=== PATIENT | female | born 1945 | race Hispanic/Latino ===

== ENCOUNTER 2018-03-21 19:24 | Observation (INO) | payer OTHER, BC ==
[2018-03-21 20:23] LABS: Absolute Lymphocytes (CBC) 1.5 K/uL (0.7-4.9); Absolute Monocytes 0.7 K/uL (0.1-1.3); Absolute Neutrophil 4.7 K/uL (1.8-8.0); Basophils % 0.9 % (0-1.3); Hematocrit 22.3 % (36.0-45.0); Lymphocytes % 20.7 % (15.3-44.8); MCH 30.1 pg (27.0-35.0); MCV 87.4 fL (80-100); MPV 7.5 fL (7.6-11.3); Monocytes % 9.5 % (3.3-12.3); RBC Red Blood Cell Count 2.55 M/uL (3.86-4.86)
[2018-03-21 20:26] LABS: Protime INR 0.97
[2018-03-21 20:37] LABS: ALT/SGPT 17 U/L (12-78); AST/SGOT 15 U/L (15-37); Albumin 2.6 g/dL (3.4-5.0); Alkaline Phosphatase 99 U/L (45-117); BUN Blood Urea Nitrogen 12 mg/dL (7-18); Bicarbonate 31 mmol/L (21-32); Bilirubin Direct < 0.1 mg/dL (0-0.2); Bilirubin Total 0.2 mg/dL (0.2-1.0); CKMB Creatine Kinase MB < 1.0 ng/mL (0.3-3.6); Creatine Phosphokinase 20 U/L (26-192); Glucose Level 101 mg/dL (74-106); Magnesium 1.8 mg/dL (1.8-2.4); NT PRO-BNP 3336 pg/mL (<125); Potassium 3.2 mmol/L (3.5-5.1); Protein, Total 6.4 g/dL (6.4-8.2); Sodium Level 139 mmol/L (136-145)
--- NOTE | 2018-03-21 20:49 | RAD REPORT ---
EXAM DESCRIPTION: RAD - Chest Single View - 03/21/2018 8:39 pm CLINICAL HISTORY: blood transfusion Chest pain. COMPARISON: No comparisons FINDINGS: Portable technique limits examination quality. The lungs are grossly clear. The heart is mildly prominent in size. No displaced fractures.Right-side d dialysis catheter tip in the SVC. IMPRESSION: No acute intrathoracic process suspected.
--- NOTE | 2018-03-21 21:06 | EDPHYS ---
Physician Documentation [facility] Name: Stephanie Angeles Age: 72 yrs Sex: Female : 1945 Arrival Date: 03/21/2018 Time: 19:29 Bed 2 Private MD: ED Physician Ti De Guzman HPI: 03/21 21:01 This 72 yrs old Female presents to ER via Wheelchair with complaints of BLOOD estela TRANSFUSION. 21:01 weakness, sob, esrd on hd. Onset: The symptoms/episode began/occurred 1 week(s) ago. estela Severity of symptoms: At their worst the symptoms were mild moderate in the emergency department the symptoms are unchanged. The patient has experienced similar episodes in the past, several times. Historical: - Allergies: 20:02 No Known Allergies; bb - Home Meds: 20:02 furosemide 20 mg Oral tab 1 tab once daily [Active]; glipizide 2.5 mg Oral tr24 1 tabs bb once daily [Active]; isosorbide mononitrate 30 mg Oral Tb24 1 tab once daily [Active]; potassium chloride 10 mEq Oral cpER 1 cap once daily [Active]; lisinopril 40 mg Oral tab 1 tab once daily [Active]; metoprolol tartrate 100 mg Oral tab 1 tab 2 times per day [Active]; simvastatin 40 mg Oral tab 1 tab once daily [Active]; - PMHx: 20:02 Hypertension; Hyperlipidemia; Diabetes - NIDDM; bb 20:03 ESRD; bb - PSHx: 20:02 Hysterectomy; bb - Immunization history:: Adult Immunizations unknown. - Social history:: Smoking status: Patient/guardian denies using tobacco, Patient/guardian denies using alcohol, street drugs. - Ebola Screening: : No symptoms or risks identified at this time. ROS: 21:01 Constitutional: Negative for fever, chills, and weight loss, Eyes: Negative for injury, estela pain, redness, and discharge, ENT: Negative for injury, pain, and discharge, Neck: Negative for injury, pain, and swelling, Cardiovascular: Negative for chest pain, palpitations, and edema, Respiratory: Negative for shortness of breath, cough, wheezing, and pleuritic chest pain, Abdomen/GI: Negative for abdominal pain, nausea, vomiting, diarrhea, and constipation, Back: Negative for injury and pain, : Negative for injury, bleeding, discharge, and swelling, MS/Extremity: Negative for injury and deformity, Skin: Negative for injury, rash, and discoloration, Psych: Negative for depression, anxiety, suicide ideation, homicidal ideation, and hallucinations, Allergy/Immunology: Negative for hives, rash, and allergies, Endocrine: Negative for neck swelling, polydipsia, polyuria, polyphagia, and marked weight changes, Hematologic/Lymphatic: Negative for swollen nodes, abnormal bleeding, and unusual bruising. 21:01 Neuro: Positive for weakness. Exam: 21:01 Constitutional: This is a well developed, well nourished patient who is awake, alert, estela and in no acute distress. Head/Face: Normocephalic, atraumatic. Eyes: Pupils equal round and reactive to light, extra-ocular motions intact. Lids and lashes normal. Conjunctiva and sclera are non-icteric and not injected. Cornea within normal limits. Periorbital areas with no swelling, redness, or edema. ENT: Nares patent. No nasal discharge, no septal abnormalities noted. Tympanic membranes are normal and external auditory canals are clear. Oropharynx with no redness, swelling, or masses, exudates, or evidence of obstruction, uvula midline. Mucous membranes moist. Neck: Trachea midline, no thyromegaly or masses palpated, and no cervical lymphadenopathy. Supple, full range of motion without nuchal rigidity, or vertebral point tenderness. No Meningismus. Chest/axilla: Normal chest wall appearance and motion. Nontender with no deformity. No lesions are appreciated. Cardiovascular: Regular rate and rhythm with a normal S1 and S2. No gallops, murmurs, or rubs. Normal PMI, no JVD. No pulse deficits. Respiratory: Lungs have equal breath sounds bilaterally, clear to auscultation and percussion. No rales, rhonchi or wheezes noted. No increased work of breathing, no retractions or nasal flaring. Abdomen/GI: Soft, non-tender, with normal bowel sounds. No distension or tympany. No guarding or rebound. No evidence of tenderness throughout. Back: No spinal tenderness. No costovertebral tenderness. Full range of motion. Skin: Warm, dry with normal turgor. Normal color with no rashes, no lesions, and no evidence of cellulitis. MS/ Extremity: Pulses equal, no cyanosis. Neurovascular intact. Full, normal range of motion. Neuro: Awake and alert, GCS 15, oriented to person, place, time, and situation. Cranial nerves II-XII grossly intact. Motor strength 5/5 in all extremities. Sensory grossly intact. Cerebellar exam normal. Normal gait. Psych: Awake, alert, with orientation to person, place and time. Behavior, mood, and affect are within normal limits. Vital Signs: 20:03 BP 134 / 90; Pulse 78; Resp 16 S; Pulse Ox 98% on R/A; Weight 65.77 kg (R); Height 5 bb ft. 1 in. (154.94 cm) (R); 20:12 BP 149 / 64; Pulse 75; Resp 16; Pulse Ox 96% on R/A; mt 21:45 BP 129 / 59; Pulse 74; Resp 18; Pulse Ox 98% on R/A; mt 22:03 BP 123 / 58; Pulse 70; Resp 19; Pulse Ox 98% on R/A; mt 23:01 BP 126 / 61; Pulse 76; Resp 16; Pulse Ox 98% ; Pain 0/10; ao 20:03 Body Mass Index 27.40 (65.77 kg, 154.94 cm) bb MDM: 20:27 Patient medically screened. [facility] 21:04 Data reviewed: vital signs, nurses notes, lab test result(s), EKG, radiologic studies, estela plain films. 03/21 19:56 Order name: Basic Metabolic Panel; Complete Time: 20:59 03/21 19:56 Order name: CBC with Diff; Complete Time: 20:59 03/21 19:56 Order name: Ckmb; Complete Time: 20:59 03/21 19:56 Order name: CPK; Complete Time: 20:59 03/21 19:56 Order name: LFT's; Complete Time: 20:59 03/21 19:56 Order name: Magnesium; Complete Time: 20:59 03/21 19:56 Order name: NT PRO-BNP; Complete Time: 20:59 03/21 19:56 Order name: PT-INR; Complete Time: 20:59 03/21 19:56 Order name: Ptt, Activated; Complete Time: 20:59 03/21 19:56 Order name: Troponin (emerg Dept Use Only); Complete Time: 20:59 03/21 19:56 Order name: XRAY Chest (1 view); Complete Time: 20:59 03/21 19:56 Order name: EKG; Complete Time: 19:56 03/21 19:56 Order name: Type And Screen 03/21 21:55 Order name: ABO/RH no charge; Complete Time: 21:58 EDMS 03/21 19:56 Order name: Cardiac monitoring; Complete Time: 20:08 03/21 19:56 Order name: EKG - Nurse/Tech; Complete Time: 20:08 03/21 19:56 Order name: IV Saline Lock; Complete Time: 20:13 03/21 19:56 Order name: Labs collected and sent; Complete Time: 20: 03/21 19:56 Order name: O2 Per Protocol; Complete Time: 20:03/21 19:56 Order name: O2 Sat Monitoring; Complete Time: 20: 03/21 21:08 Order name: CONS Physician Consult EDMS Administered Medications: No medications were administered Point of Care Testing: Blood Glucose: 20: Blood Glucose: 125 mg/dL; lp1 Ranges: Critical Glucose Levels:Adult <50 mg/dl or >400 mg/dl <40 mg/dl or >180 mg/dl Disposition: 03/21/18 21:05 Hospitalization ordered by Mala Avila for Observation. Preliminary diagnosis are Weakness, End stage renal disease, Anemia, unspecified, Hypokalemia. - Bed requested for Telemetry/MedSurg (observation). - Status is Observation. ao - Condition is Fair. - Problem is new. - Symptoms have improved. UTI on Admission? No Signatures: Dispatcher [employer] EDWA Radha Yoon RN RN mw Anderson, Corey, MD MD cha Ballard, Brenda, RN RN Enrique Chaparro RN RN ao Corrections: (The following items were deleted from the chart) 21:17 21:05 Hospitalization Ordered by Mala Avila MD for Observation. Preliminary diagnosis is Weakness; End stage renal disease; Anemia, unspecified. Bed requested for Telemetry/MedSurg (observation). Status is Observation. Condition is Fair. Problem is new. Symptoms have improved. UTI on Admission? No. estela 21:59 21:17 03/21/2018 21:05 Hospitalization Ordered by Mala Avila MD for Observation. estela Preliminary diagnosis is Weakness; End stage renal disease; Anemia, unspecified. Bed requested for Telemetry/MedSurg (observation). Status is Observation. Condition is Fair. Problem is new. Symptoms have improved. UTI on Admission? No. mw 22:58 21:00 Blood Transfusion Consent ordered. estela ao 22:59 19:56 Urine Dipstick-Ancillary ordered. lupe ao 23:02 21:59 03/21/2018 21:05 Hospitalization Ordered by Mala Avila MD for Observation. ao Preliminary diagnosis is Weakness; End stage renal disease; Anemia, unspecified; Hypokalemia. Bed requested for Telemetry/MedSurg (observation). Status is Observation. Condition is Fair. Problem is new. Symptoms have improved. UTI on Admission? No. estela
--- NOTE | 2018-03-21 21:06 | ER ---
Nurse's Notes [facility] Name: Stephanie Angeles Age: 72 yrs Sex: Female : 1945 Arrival Date: 03/21/2018 Time: 19:29 Bed 2 Private MD: Diagnosis: Weakness;End stage renal disease;Anemia, unspecified;Hypokalemia Presentation: 03/21 19:57 Presenting complaint: Patient states: she was sent here for a blood transfusion she is bb a dialysis patient. Transition of care: patient was not received from another setting of care. Onset of symptoms is unknown. Risk Assessment: Do you want to hurt yourself or someone else? Patient reports no desire to harm self or others. Initial Sepsis Screen: Does the patient meet any 2 criteria? No. Patient's initial sepsis screen is negative. Does the patient have a suspected source of infection? No. Patient's initial sepsis screen is negative. Care prior to arrival: None. 19:57 Method Of Arrival: Wheelchair 19:57 Acuity: ROMERO 3 bb Historical: - Allergies: 20:02 No Known Allergies; bb - Home Meds: 20:02 furosemide 20 mg Oral tab 1 tab once daily [Active]; glipizide 2.5 mg Oral tr24 1 tabs bb once daily [Active]; isosorbide mononitrate 30 mg Oral Tb24 1 tab once daily [Active]; potassium chloride 10 mEq Oral cpER 1 cap once daily [Active]; lisinopril 40 mg Oral tab 1 tab once daily [Active]; metoprolol tartrate 100 mg Oral tab 1 tab 2 times per day [Active]; simvastatin 40 mg Oral tab 1 tab once daily [Active]; - PMHx: 20:02 Hypertension; Hyperlipidemia; Diabetes - NIDDM; bb 20:03 ESRD; bb - PSHx: 20:02 Hysterectomy; bb - Immunization history:: Adult Immunizations unknown. - Social history:: Smoking status: Patient/guardian denies using tobacco, Patient/guardian denies using alcohol, street drugs. - Ebola Screening: : No symptoms or risks identified at this time. Screenin:16 Abuse screen: Denies threats or abuse. Denies injuries from another. Nutritional ao screening: No deficits noted. Tuberculosis screening: No symptoms or risk factors identified. Fall Risk None identified. Assessment: 20:10 General: Appears in no apparent distress. comfortable, Behavior is calm, cooperative, ao appropriate for age. General: Report to be send by Dr Verdugo to get blood transfusion. Pain: Denies pain. Neuro: Level of Consciousness is awake, alert, obeys commands, Oriented to person, place, time, situation, Appropriate for age Moves all extremities. Full function Speech is normal, Facial symmetry appears normal, Pupils are PERRLA. Cardiovascular: Capillary refill < 3 seconds Patient's skin is warm and dry. Respiratory: Airway is patent Respiratory effort is even, unlabored, Respiratory pattern is regular, symmetrical, Breath sounds are clear bilaterally. GI: Abdomen is non-distended, Bowel sounds present X 4 quads. : No signs and/or symptoms were reported regarding the genitourinary system. EENT: No signs and/or symptoms were reported regarding the EENT system. Derm: Skin is intact, Skin is dry, Skin is pink, warm \T\ dry. normal, Skin temperature is warm. Musculoskeletal: Circulation, motion, and sensation intact. Range of motion: intact in all extremities. 21:30 Reassessment: Patient appears in no apparent distress at this time. Patient and/or ao family updated on plan of care and expected duration. Pain level reassessed. Patient is alert, oriented x 3, equal unlabored respirations, skin warm/dry/pink. Waiting on admission order. 22:50 Reassessment: Patient appears in no apparent distress at this time. Patient and/or ao family updated on plan of care and expected duration. Pain level reassessed. Patient is alert, oriented x 3, equal unlabored respirations, skin warm/dry/pink. Called report to [facility]th [place]. Patient to be taken to her room. Vital Signs: 20:03 BP 134 / 90; Pulse 78; Resp 16 S; Pulse Ox 98% on R/A; Weight 65.77 kg (R); Height 5 bb ft. 1 in. (154.94 cm) (R); 20:12 BP 149 / 64; Pulse 75; Resp 16; Pulse Ox 96% on R/A; mt 21:45 BP 129 / 59; Pulse 74; Resp 18; Pulse Ox 98% on R/A; mt 22:03 BP 123 / 58; Pulse 70; Resp 19; Pulse Ox 98% on R/A; mt 23:01 BP 126 / 61; Pulse 76; Resp 16; Pulse Ox 98% ; Pain 0/10; ao 20:03 Body Mass Index 27.40 (65.77 kg, 154.94 cm) bb ED Course: 19:29 Patient arrived in ED. al2 19:38 Enrique King, RN is Primary Nurse. ao 19:57 Triage completed. bb 20:03 Arm band placed on Patient placed in an exam room, on a stretcher, on pulse oximetry. bb 20:05 Inserted saline lock: 20 gauge in right antecubital area, using aseptic technique. lp1 Blood collected. 20:05 Initial lab(s) drawn, by nh, sent to lab. lp1 20:17 Patient has correct armband on for positive identification. night monitor on. Pulse ao ox on. NIBP on. 20:26 Ti De Guzman MD is Attending Physician. estela 20:30 Notified ED physician of a critical lab result(s). Hgb 7.7 Dr De Guzman notified. bb 20:35 X-ray completed. Portable x-ray completed in exam room. Patient tolerated procedure bb2 well. 20:39 XRAY Chest (1 view) In Process Unspecified. EDMS 21:05 Mala Avila MD is Hospitalizing Provider. estela 22:28 No provider procedures requiring assistance completed. Patient admitted, IV remains in lp1 place. Administered Medications: No medications were administered Point of Care Testing: Blood Glucose: 20:13 Blood Glucose: 125 mg/dL; lp1 Ranges: Outcome: 21:05 Decision to Hospitalize by Provider. estela 22:29 Condition: stable lp1 22:29 Instructed on the need for admit. 22:59 Admitted to Med/surg accompanied by tech, via wheelchair, room 428, with chart, Report ao called to primary nurse 23:02 Patient left the ED. ao Signatures: Dispatcher [employer] EDNE Ti De Guzman MD MD cha Ballard, Brenda, RN RN bb Pena, Laura RN RN lp1 Enrique King, RN Mavis Reyez mt, Brittany bb2 Elsy Fairbanks il2
[2018-03-21] MEDS ORDERED: ONDANSETRON 4 MG/2 ML VIAL IV PRN (21:53)
[2018-03-21] MEDS ORDERED: MORPHINE 2 MG/ML SYR IV PRN (21:53)
[2018-03-21] MEDS ORDERED: ACETAMINOPHEN 500 MG TAB PO PRN (21:53)
[2018-03-21] MEDS ORDERED: DIPHENHYDRAMINE 50 MG/ML VIAL IV ONE (23:17)
[2018-03-21] MEDS ORDERED: ACETAMINOPHEN 500 MG TAB PO ONE (23:17)
[2018-03-22] MEDS ORDERED: NA CHLORIDE 0.9% 100 ML ONE (00:30)
[2018-03-22 05:53] LABS: Absolute Lymphocytes (CBC) 1.9 K/uL (0.7-4.9); Absolute Monocytes 0.8 K/uL (0.1-1.3); Absolute Neutrophil 3.5 K/uL (1.8-8.0); Eosinophils % 6.1 % (0-4.4); Hematocrit 22.3 % (36.0-45.0); Lymphocytes % 28.3 % (15.3-44.8); MCH 30.6 pg (27.0-35.0); MCV 86.6 fL (80-100); MPV 7.5 fL (7.6-11.3); Monocytes % 11.6 % (3.3-12.3); RBC Red Blood Cell Count 2.58 M/uL (3.86-4.86)
[2018-03-22 06:10] LABS: Protime INR 0.98
[2018-03-22 06:12] LABS: Albumin 2.2 g/dL (3.4-5.0); Bilirubin Total 0.4 mg/dL (0.2-1.0); Potassium 3.2 mmol/L (3.5-5.1); Protein, Total 5.3 g/dL (6.4-8.2)
--- NOTE | 2018-03-22 08:58 | P.HP ---
Certification for Inpatient Patient admitted to: Observation With expected LOS: <2 Midnights Patient will require the following post-hospital care: None Practitioner: I am a practitioner with admitting privileges, knowledge of patient current condition, hospital course, and medical plan of care. Services: Services provided to patient in accordance with Admission requirements found in Title 42 Section 412.3 of the Code of Federal Regulations Patient History Date of Service: 03/21/18 Reason for admission: Generalized weakness and anemia History of Present Illness: Patient is a 72-year-old female who came into the hospital with generalized weakness. Patient also has severe anemia. Patient was found to have sips and went into renal failure. She has been on hemodialysis as she developed renal failure during that time. This has been continued as an outpatient. She developed some anemia and she will be admitted to the hospital for further evaluation. Will go ahead and transfuse her 1 unit of packed red blood cell. Otherwise, patient with no new complaints. Clinically she is doing well. Plan to discharge her home in 24-48 hrs. Allergies No Known Allergies Allergy (Unverified 03/21/18 23:56) Home Medications: Amlodipine [Norvasc] 10 mg PO DAILY 03/22/18 Calcium Carbonate [Oscal] 1,000 mg PO TID 03/22/18 Carvedilol [Coreg] 12.5 mg PO BID 03/22/18 - Past Medical/Surgical History Has patient received pneumonia vaccine in the past: Yes Diabetic: Yes -: ESRD -: DM -: HTN -: Hyperlipidemia -: Hysterectomy - Family History Father Medical History: Heart disease, Hypertension, Diabetes, Stroke Notes: heart attack Mother Medical History: Heart disease Notes: massive heart attack Brother Medical History: Hypertension, Diabetes, Stroke, Cancer Notes: prostate cancer Sister Medical History: Heart disease, Hypertension, Diabetes Notes: open heart sx; heart attack - Social History Smoking Status: Never smoker Alcohol use: No CD- Drugs: No Caffeine use: Yes Place of Residence: Home Review of Systems 10-point ROS is otherwise unremarkable Physical Examination - Vital Signs Temperature: 98.1 F Blood Pressure: 155/68 Pulse: 68 Respirations: 16 Pulse Ox (%): 96 - Physical Exam General: Alert, In no apparent distress, Oriented x3 HEENT: Atraumatic, PERRLA, Mucous membr. moist/pink, EOMI, Sclerae nonicteric Neck: Supple, 2+ carotid pulse no bruit, No LAD, Without JVD or thyroid abnormality Respiratory: Clear to auscultation bilaterally, Normal air movement Cardiovascular: Regular rate/rhythm, Normal S1 S2, No murmurs Gastrointestinal: Normal bowel sounds, Soft and benign, Non-distended, No tenderness Musculoskeletal: No clubbing, No swelling, No tenderness Integumentary: No rashes Neurological: Normal gait, Normal speech, Normal strength at 5/5 x4 extr, Normal tone, Sensation intact, Cranial nerves 3-12 intact, Normal affect Lymphatics: No axilla or inguinal lymphadenopathy - Studies Laboratory Data (last 24 hrs) 03/21/18 20:05: PT 11.5, INR 0.97, APTT 29.1 03/21/18 20:05: WBC 7.4, Hgb 7.7 L*, Hct 22.3 L, Plt Count 307 03/21/18 20:05: Sodium 139, Potassium 3.2 L, BUN 12, Creatinine 2.00 H, Glucose 101, Magnesium 1.8, Total Bilirubin 0.2, AST 15, ALT 17, Alkaline Phosphatase 99 Assessment & Plan - Problems (Diagnosis) (1) End stage renal disease Current Visit: Yes Status: Acute (2) History of sepsis Current Visit: Yes Status: Acute (3) Acute kidney failure Onset Date: 03/22/18 Current Visit: Yes Status: Acute (4) Anemia Onset Date: 03/22/18 Current Visit: Yes Status: Acute (5) Weakness Onset Date: 03/22/18 Current Visit: Yes Status: Acute - Plan Plan: 1. Continue with hemodialysis per Nephrology 2. Type and screen for 2 units 3. Continue with pain control 4. Renal diet 5. Nephrology consultation 6. Serial H&H, and anemia studies 7. GI and DVT prophylaxis Discharge Plan: Home Plan to discharge in: 48 Hours - Advance Directives Does patient have a Living Will: No Does patient have a Durable POA for Healthcare: No - Code Status/Comfort Care Code Status Assessed: Yes Code Status: Full Code Critical Care: No Time Spent Managing PTS Care (In Minutes): 50
--- NOTE | 2018-03-22 09:03 | EKG ---
Test Date: 2018-03-21 Test Time: 19:56:55 Studio Owner: JM MEASUREMENT RESULTS: Intervals: Rate: 75 MT: 202 QRSD: 148 QT: 442 QTc: 493 Enterprise: P: 43 MT: 202 QRS: 58 T: 28 INTERPRETIVE STATEMENTS: Normal sinus rhythm Right bundle branch block Abnormal ECG No previous ECG available for comparison Electronically Signed On 03-22-18 09:02:53 CDT by Doug Hernandez
[2018-03-22 09:40] LABS: Ferritin 29.9 ng/mL (8-388)
[2018-03-22] MEDS: CARVEDILOL 12.5 MG TAB PO SCH ×2 (10:18→21:50)
[2018-03-22] MEDS: AMLODIPINE 10 MG TAB PO SCH (10:18)
[2018-03-22] MEDS: CALCIUM CARBONATE 500 MG TAB PO SCH ×3 (10:18→21:50)
--- NOTE | 2018-03-22 15:03 | CON ---
Date of Consultation: 03/22/2018 History Of Present Illness: The patient is a 72-year-old woman who came to the hospital because of generalized weakness and she was found to have severe anemia and is to have blood transfusion. She has history of accelerated chronic kidney disease and she currently is dialysis dependent and undergoing dialysis 3 times for which she has had dialysis done yesterday. The patient has end-stage renal disease due to hypertension and diabetes. Review of Systems: Constitutional: Denies fever, chills. Eyes: Denies vision changes. Ears, Nose, Mouth, and Throat: Denies sore throat or earache. Respiratory: Denies PND, orthopnea. Cardiovascular: Denies chest pain, palpitation. GI: Denies nausea, vomiting. : Denies dysuria, hematuria. Musculoskeletal: Denies muscle aches or joint swelling All other systems reviewed and all are negative. Past Medical History: Diabetes mellitus, hypertension, hyperlipidemia, anemia, CKD, hysterectomy, end-stage renal disease, on dialysis, status post dialysis catheter placement. Family History: Father had diabetes, hypertension, heart disease and stroke. Mother heart disease and coronary artery disease. Brother, hypertension, diabetes, cancer, stroke. Brother had prostate cancer. Sister had dialysis, hypertension, coronary artery disease and CABG. Social History: Denies tobacco, alcohol, or illicit drugs. Physical Examination: Vital Signs: Blood pressure 115/68, temperature 98.1, respiratory rate 16, SpO2 96%. Eyes: Anicteric sclerae. EOMI. Ears, nose, mouth and throat: Oral mucosa moist. No pallor. Neck: Supple. No JVD. No bruits. Lungs: Clear to auscultation bilaterally. Heart: S1, S2. No pericardial friction or rub. Abdomen: Soft. Benign. Nontender. Extremities: No edema. No cyanosis Skin : warm and dry , no oozing Neurologic: alert, no tremor , oriented x3 Laboratory Data: Sodium 139, potassium 3.2, creatinine 2.0, BUN 12, glucose 101 , magnesium 1.8, total bilirubin 0.2, hemoglobin 7.7, WBC 7.4, platelet count 307,000. Impression And Plan: 1. End-stage renal disease. The patient will have dialysis tomorrow. Electrolyte in acceptable ranges. The patient is on p.o. intake currently and plan is to monitor electrolytes. There is mild hypokalemia. At this point, the patient does not require replacement. 2. Fluid overload is controlled. The patient is euvolemic. At this point, she does not need dialysis. Continue p.o. fluid restriction and renal diet. 3. Hypertension. Monitor blood pressure. Currently is in good control. 4. Anemia. The patient will receive blood transfusion. Continue TAMIKA. LORI/BRIGITTE Voice ID: [id number] Report ID: [id number]
--- NOTE | 2018-03-22 18:11 | P.PN ---
Subjective Date of Service: 03/22/18 Chief Complaint: Generalized weakness and anemia doing better after transfusion, no bleedings Physical Examination - Vital Signs Temperature: 97.8 F Blood Pressure: 119/59 Pulse: 72 Respirations: 16 Pulse Ox (%): 98 - Physical Exam General: Alert, In no apparent distress HEENT: Atraumatic, PERRLA, EOMI Neck: Supple, JVD not distended Respiratory: Clear to auscultation bilaterally, Normal air movement Cardiovascular: Regular rate/rhythm, Normal S1 S2 Gastrointestinal: Normal bowel sounds, No tenderness Musculoskeletal: No tenderness Integumentary: No rashes Neurological: Normal speech, Normal tone, Normal affect Lymphatics: No axilla or inguinal lymphadenopathy - Studies Laboratory Data (last 24 hrs) 03/21/18 20:05: PT 11.5, INR 0.97, APTT 29.1 03/21/18 20:05: WBC 7.4, Hgb 7.7 L*, Hct 22.3 L, Plt Count 307 03/21/18 20:05: Sodium 139, Potassium 3.2 L, BUN 12, Creatinine 2.00 H, Glucose 101, Magnesium 1.8, Total Bilirubin 0.2, AST 15, ALT 17, Alkaline Phosphatase 99 Medications List Reviewed: Yes Assessment And Plan - Current Problems (Diagnosis) (1) Anemia Onset Date: 03/22/18 Current Visit: Yes Status: Acute Qualifiers: Iron deficiency anemia type: chronic blood loss (2) End stage renal disease Current Visit: Yes Status: Chronic - Plan --Transfuse --Dialysis --Anemia W/U --Cons Nephrology --Cons GI, OB positve
[2018-03-23] MEDS ORDERED: EPOETIN ALFA 10,000 UNIT/ML VIAL SQ SCH (07:45)
[2018-03-23] MEDS: CALCIUM CARBONATE 500 MG TAB PO SCH ×2 (08:55→15:24)
[2018-03-23] MEDS: CARVEDILOL 12.5 MG TAB PO SCH (08:56)
[2018-03-23] MEDS ORDERED: FOLIC ACID 1 MG TABLET PO SCH (09:00)
[2018-03-23] MEDS ORDERED: SOD FERRIC GLUC COMPLX/SUCROSE 125 MG in NA CHLORIDE 0.9% 100 ML IV SCH (10:00)
[2018-03-23] MEDS ORDERED: SOD FERRIC GLUC COMPLX IV SCH (10:00)
[2018-03-23] MEDS ORDERED: SUCROSE IV SCH (10:00)
[2018-03-23] MEDS ORDERED: NA CHLORIDE 0.9% IV SCH (10:00)
[2018-03-23] MEDS: AMLODIPINE 10 MG TAB PO SCH (15:24)
--- NOTE | 2018-03-23 16:22 | P.DS ---
Admission Date: 03/21/18 Discharge Date: 03/23/18 Disposition: ROUTINE DISCHARGE Discharge Condition: FAIR Reason for Admission: Generalized weakness and anemia - Problems (1) Anemia Onset Date: 03/22/18 Current Visit: Yes Status: Acute Qualifiers: Iron deficiency anemia type: chronic blood loss (2) End stage renal disease Current Visit: Yes Status: Chronic Brief History of Present Illness: Patient is a 72-year-old female who came into the hospital with generalized weakness. Patient also has severe anemia. Patient was found to have sips and went into renal failure. She has been on hemodialysis as she developed renal failure during that time. This has been continued as an outpatient. She developed some anemia and she will be admitted to the hospital for further evaluation. Will go ahead and transfuse her 1 unit of packed red blood cell. Otherwise, patient with no new complaints. Clinically she is doing well. Plan to discharge her home in 24-48 hrs. Hospital Course: She received 2 U PRBC with improvement. HD was continued. She has positive OB in stool but she no has obvious clinical signs of bleeding. She is dicharged home in stable condition. An GI clinic appointment was made for her in 1-2 weeks. Vital Signs/Physical Exam: Temp Pulse Resp BP Pulse Ox 97.4 F 68 17 130/58 L 97 03/23/18 12:00 03/23/18 15:24 03/23/18 12:00 03/23/18 15:24 03/23/18 12:00 General: Alert, In no apparent distress HEENT: Atraumatic, PERRLA, EOMI Neck: Supple, JVD not distended Respiratory: Clear to auscultation bilaterally, Normal air movement Cardiovascular: Regular rate/rhythm, Normal S1 S2 Gastrointestinal: Normal bowel sounds, No tenderness Musculoskeletal: No tenderness Integumentary: No rashes Neurological: Normal speech, Normal tone, Normal affect Lymphatics: No axilla or inguinal lymphadenopathy Laboratory Data at Discharge: WBC 6.7 K/uL (4.3-10.9) 03/22/18 05:08 Hgb 7.9 g/dL (12.0-15.0) L* 03/22/18 05:08 Hct 22.3 % (36.0-45.0) L 03/22/18 05:08 Plt Count 263 K/uL (152-406) 03/22/18 05:08 PT 11.6 SECONDS (9.5-12.5) 03/22/18 05:08 INR 0.98 03/22/18 05:08 APTT 28.6 SECONDS (24.3-36.9) 03/22/18 05:08 Sodium 138 mmol/L (136-145) 03/22/18 05:08 Potassium 3.2 mmol/L (3.5-5.1) L 03/22/18 05:08 BUN 18 mg/dL (7-18) 03/22/18 05:08 Creatinine 2.80 mg/dL (0.55-1.3) H 03/22/18 05:08 Glucose 108 mg/dL (74-106) H 03/22/18 05:08 Magnesium 1.8 mg/dL (1.8-2.4) 03/21/18 20:05 Total Bilirubin 0.4 mg/dL (0.2-1.0) 03/22/18 05:08 AST 14 U/L (15-37) L 03/22/18 05:08 ALT 14 U/L (12-78) 03/22/18 05:08 Alkaline Phosphatase 81 U/L (45-117) 03/22/18 05:08 Home Medications: Amlodipine [Norvasc*] 10 mg PO DAILY 03/22/18 Calcium Carbonate [Oscal*] 1,000 mg PO TID 03/22/18 Carvedilol [Coreg*] 12.5 mg PO BID 03/22/18 Epoetin [Procrit*] 10,000 unit SQ EVERY HD vial 03/23/18 Diet: Renal Activity: Ad hailee Followup: Claude Frazier MD [ACTIVE - CAN ADMIT] - 1 Week (GI Bleeding OB positive, Anemia) Time spent managing pt's care (in minutes): 15
--- NOTE | 2018-03-23 21:28 | PN ---
Date of Progress Note: 03/23/2018 Subjective: The patient was admitted with symptomatic anemia. The patient recently started on dialy sis at [facility]. Physical Examination: Vital Signs: Blood pressure 130/58, pulse of 68, afebrile. The patient still has good urine output. Chest: Clear to auscultation. Heart: S1, S2. Regular. Abdomen: Soft. Nontender. Extremity: Trace edema. Laboratory Data: WBC 6.7, H and H 7.9/22.3, platelets 263. Sodium 138, potassium 3.2, bicarb 30, BU N 18, creatinine 2.8, calcium 8.4. TSAT of 25. Ferritin of 29. Current Medications: The patient on its include: 1.IV iron. 2.Epogen. 3.Calcium carbonate. 4.Carvedilol. 5.Amlodipine. 6.Folic acid. Assessment And Plan: 1.End-stage renal disease. We will continue the patient on dialysis Monday, Monday, Monday. 2.Secondary hyperparathyroidism. Continue calcium acetate. 3.Anemia of chronic kidney disease, iron deficiency anemia. Continue with IV iron, continue Epogen. Follow up with GI. 4.Hypertension, controlled optimal. Continue current medication. MEGHANN Voice ID: [id number] Report ID: [id number]
[2018-03-25 19:30] LABS: HBsAG Nonreactive (Nonreactive)
== END 2018-03-23 17:44 | disposition home or self-care (01) ==
LOC: EDSTATUS 19:24 → ER 19:24 → ERHOLD 21:07 → 4TH 22:37
PROVIDERS: ADMIT Hospitalist; ATTEND Hospitalist
PROC: 30233N1 Transfusion of Nonautologous Red Blood Cells into Peripheral Vein, Percutaneous Approach (ICD-10-PCS; 2018-03-22)
PROC: 5A1D70Z Performance of Urinary Filtration, Intermittent, Less than 6 Hours Per Day (ICD-10-PCS; principal; 2018-03-23)
DX: D50.9 Iron deficiency anemia, unspecified (principal); I12.0 Hypertensive chronic kidney disease with stage 5 chronic kidney disease or end stage renal disease; E11.22 Type 2 diabetes mellitus with diabetic chronic kidney disease; N18.6 End stage renal disease; E78.5 Hyperlipidemia, unspecified; N25.81 Secondary hyperparathyroidism of renal origin
CPT/HCPCS: 36415; 36430; 71045; 80048; 80053; 80076; 82274; 82550; 82553; 82607; 82728; 82962 ×8; 83540; 83735; 83880; 84466; 84484; 85025 ×2; 85610 ×2; 85730 ×2; 86704; 86706; 86803; 86850; 86900; 86901; 87340; 93005; 99285; G0257; P9016; J2270